=== PATIENT | female | born 1975 | race African-American/Black ===

== ENCOUNTER 2016-08-18 22:44 | Emergency (ER) | payer MEDICAID ==
[~2016-08-18] VITALS: Ht 162.6 cm; Wt 114.0 kg
[~2016-08-18 22:44] MED LIST: FLUC150T PO; HYDR25TA5 PO; IBUP-232 PO; LISI-587 PO
[2016-08-18 23:05] VITALS: BP 173/82; PULSE 85; RESP 15; TEMP 98.6; O2SAT 99
[2016-08-18] MEDS ORDERED: DIABETIC MED PO (23:16)
[2016-08-18] MEDS ORDERED: SODIUM CHLORIDE 0.9% FLUSH 5 ML FLUSH IVF PRN (23:30)
[2016-08-18] MEDS ORDERED: LORazepam 2 MG/ML VIAL IVS ONE (23:30)
[2016-08-18 23:45] LABS: AUTOMATED NEUTROPHIL # 2.7 TH/MM3 (1.8-7.7); BASOPHIL # 0.1 TH/MM3 (0-0.2); EOSINOPHIL # 0.3 TH/MM3 (0-0.4); EOSINOPHIL % 5.3 % (0.0-4.0); HEMATOCRIT 42.6 % (35.0-46.0); HEMO FLAGS DIFF FINAL; LYMPH % 40.7 % (9.0-44.0); LYMPHOCYTE # 2.3 TH/MM3 (1.0-4.8); MEAN CORPUSCULAR HEMOGLOBIN 26.4 PG (27.0-34.0); MONO % 6.8 % (0.0-8.0); NEUT % 46.2 % (16.0-70.0); PLATELET COUNT 237 TH/MM3 (150-450); RED BLOOD COUNT 5.33 MIL/MM3 (4.00-5.30); RED CELL DISTRIBUTION WIDTH 14.1 % (11.6-17.2); WHITE BLOOD COUNT 5.7 TH/MM3 (4.0-11.0)
--- NOTE | 2016-08-18 23:53 | PD ---
HPI Chief Complaint: Seizure Time Seen by Provider: 23:22 Travel History International Travel<30 days: No Contact w/Intl Traveler<30days: No Traveled to known affect area: No History of Present Illness HPI 40-year-old female with history of seizure disorder here after fall, head trauma and seizure. Patient has history of epilepsy but has been well over a year since her last seizure. She was taken off of her Keppra by her physician. She was playing on her son's however bore when she fell, hit her head and apparently lost consciousness and had a seizure. Patient complains of left- sided occipital parietal pain, notes swelling in this region. She feels sore" all over", which is how she typically feels after a seizure. She denies any nausea, vomiting. PFSH Past Medical History Hx Anticoagulant Therapy: Yes Anemia: Yes Heart Rhythm Problems: No Cancer: No Cardiac Catheterization: No Cardiovascular Problems: Yes (HTN) High Cholesterol: Yes Chest Pain: Yes Congestive Heart Failure: No Diabetes: Yes Diminished Hearing: No Gastrointestinal Disorders: Yes GERD: Yes Headaches: Yes Hypertension: Yes Immune Disorder: No Implanted Vascular Access Dvce: No Kidney Stones: Yes Musculoskeletal: Yes (HERNIATED C-4- BACK INJURY IN 01/08- CHRONIC BACK PAIN.) Psychiatric: No Reproductive: No Respiratory: No Immunizations Current: Yes Migraines: Yes Seizures: Yes Thyroid Disease: Yes Menopausal: No : 3 Para: 2 Miscarriage: 1 : 0 Tubal Ligation: Yes (2002) Past Surgical History Section: Yes (X 2) Coronary Artery Bypass Graft: No Gynecologic Surgery: Yes (ENDOMETRIAL ABLATION, breast reduction) Social History Alcohol Use: No Tobacco Use: No Substance Use: No (Pt denies) Allergies-Medications (Allergen,Severity, Reaction): Coded Allergies: Latex (Verified Allergy, Severe, HIVES, 08/18/16) Reported Meds & Prescriptions Reported Meds & Active Scripts Active Reported [Diabetic Med] Unknown Dose PO BID Hydrochlorothiazide 25 Mg Tab 25 Mg PO DAILY Review of Systems Except as stated in HPI: all other systems reviewed are Neg Physical Exam Narrative GENERAL: Well-appearing female, obese in no acute distress SKIN: Warm and dry. HEAD: Contusion to the left occipital parietal scalp without laceration. Normocephalic. EYES: Pupils equal and round. No scleral icterus. No injection or drainage. ENT: No nasal bleeding or discharge. Mucous membranes pink and moist. NECK: Supple without midline tenderness to palpation CARDIOVASCULAR: Regular rate and rhythm. RESPIRATORY: No accessory muscle use. GASTROINTESTINAL obese MUSCULOSKELETAL: No midline tenderness to palpation of thoracic or lumbar spine. Moves Ultram as normally. NEUROLOGICAL: Awake and alert. No obvious cranial nerve deficits. Motor grossly within normal limits. Normal speech. PSYCHIATRIC: Appropriate mood and affect; insight and judgment normal. Data Data Last Documented VS Vital Signs Date Time Temp Pulse Resp B/P Pulse Ox O2 Delivery O2 Flow Rate FiO2 08/18/16 23:11 85 15 99 Room Air 08/18/16 23:05 98.6 173/82 Orders Complete Blood Count With Diff (08/18/16 23:21) Basic Metabolic Panel (Bmp) (08/18/16 23:21) Electrocardiogram (08/18/16 ) Ct Brain W/O Iv Contrast(Rout) (08/18/16 ) Ecg Monitoring (08/18/16 23:21) Iv Access Insert/Monitor (08/18/16 23:21) Oximetry (08/18/16 23:21) Sodium Chloride 0.9% Flush (Ns Flush) (08/18/16 23:30) Lorazepam Inj (Ativan Inj) (08/18/16 23:30) Labs Laboratory Tests Test 08/18/16 23:30 White Blood Count 5.7 TH/MM3 Red Blood Count 5.33 MIL/MM3 Hemoglobin 14.1 GM/DL Hematocrit 42.6 % Mean Corpuscular Volume 80.0 FL Mean Corpuscular Hemoglobin 26.4 PG Mean Corpuscular Hemoglobin 33.0 % Concent Red Cell Distribution Width 14.1 % Platelet Count 237 TH/MM3 Mean Platelet Volume 8.8 FL Neutrophils (%) (Auto) 46.2 % Lymphocytes (%) (Auto) 40.7 % Monocytes (%) (Auto) 6.8 % Eosinophils (%) (Auto) 5.3 % Basophils (%) (Auto) 1.0 % Neutrophils # (Auto) 2.7 TH/MM3 Lymphocytes # (Auto) 2.3 TH/MM3 Monocytes # (Auto) 0.4 TH/MM3 Eosinophils # (Auto) 0.3 TH/MM3 Basophils # (Auto) 0.1 TH/MM3 CBC Comment DIFF FINAL Differential Comment Sodium Level 141 MEQ/L Potassium Level 3.6 MEQ/L Chloride Level 104 MEQ/L Carbon Dioxide Level 27.5 MEQ/L Anion Gap 10 MEQ/L Blood Urea Nitrogen 12 MG/DL Creatinine 1.30 MG/DL Estimat Glomerular Filtration 54 ML/MIN Rate Random Glucose 100 MG/DL Calcium Level 9.2 MG/DL MDM Medical Decision Making Medical Screen Exam Complete: Yes Emergency Medical Condition: Yes Medical Record Reviewed: Yes Differential Diagnosis 40-year-old female with history of seizure disorder here with fall, closed head injury and seizure. Differential includes closed head injury, skull fracture, ICH, seizure, medication nonadherence, electrolyte abnormality. Narrative Course Patient placed on monitor, IV established and blood obtained. Twelve-lead EKG showed sinus rhythm without notable ST abnormalities, normal intervals. No evidence of prolonged QT, WPW, Brugada 1 mg Ativan IV ordered but patient declines. CT of the brain showed hematoma but negative otherwise. CBC and BMP notable for creatinine 1.30. Patient felt improved and will be discharged home. Diagnosis Primary Impression: Closed head injury Qualified Code: S09.90XA - Closed head injury, initial encounter Additional Impression: Seizure Referrals: Neurologist as needed Additional Instructions: No driving for 6 months after seizure. Follow-up with neurologist as discussed. Med/Other Pt SpecificInfo: No Change to Meds Disposition: 01 DISCHARGE HOME Condition: Stable Ludy Henao MD Aug 18, 2016 23:53
--- NOTE | 2016-08-18 23:56 | RADRPT ---
EXAM DATE/TIME: 08/18/2016 23:27 [facility] COMPARISON: No previous studies available for comparison. INDICATIONS : Seizure; trauma to back of head. RADIATION DOSE: 56.35 CTDIvol (mGy) MEDICAL HISTORY : Seizures. SURGICAL HISTORY : None. ENCOUNTER: Initial ACUITY: 1 day PAIN SCALE: 8/10 LOCATION: cranial TECHNIQUE: Multiple contiguous axial images were obtained of the head. Using automated exposure control and adj ustment of the mA and/or kV according to patient size, radiation dose was kept as low as reasonably a chievable to obtain optimal diagnostic quality images. FINDINGS: CEREBRUM: The ventricles are normal for age. No evidence of midline shift, mass lesion, hemorrhage or acute in farction. No extra-axial fluid collections are seen. POSTERIOR FOSSA: The cerebellum and brainstem are intact. The 4th ventricle is midline. The cerebellopontine angle i s unremarkable. EXTRACRANIAL: The visualized portion of the orbits is intact. There is a small posterior scalp hematoma. SKULL: The calvaria is intact. No evidence of skull fracture. CONCLUSION: 1. No acute intracranial abnormalities. Small posterior scalp hematoma. Jimbo Jo MD on August 18, 2016 at 23:53 Board Certified Radiologist. This report was verified electronically.
[2016-08-19 00:02] LABS: BICARBONATE 27.5 MEQ/L (21.0-32.0); POTASSIUM 3.6 MEQ/L (3.5-5.1)
[2016-08-19] MEDS ORDERED: KETOROLAC TROMETHAMINE 30 MG/ML (IVP) VIAL IV PUSH ONE (00:15)
[2016-08-19 01:31] VITALS: BP 176/90; PULSE 89; RESP 16; O2SAT 99
--- NOTE | 2016-08-19 12:32 | EKG ---
Date Performed: 08/19/2016 Time Performed: 00:04:16 PTAGE: 40 years EKG: Sinus rhythm NORMAL ECG No significant change from prior electrocardiogram. PREVIOUS TRACING : 01/03/2016 09.30 DOCTOR: Saurav Cowart Interpretating Date/Time 08/19/2016 12:31:47
== END 2016-08-19 01:33 | disposition home or self-care (01) ==
LOC: NEPE 22:44
DX: S00.03XA Contusion of scalp, initial encounter (principal); R56.9 Unspecified convulsions; D64.9 Anemia, unspecified; I10 Essential (primary) hypertension; E78.00 Pure hypercholesterolemia, unspecified; E11.9 Type 2 diabetes mellitus without complications; K21.9 Gastro-esophageal reflux disease without esophagitis; G89.29 Other chronic pain; E07.9 Disorder of thyroid, unspecified; Z79.01 Long term (current) use of anticoagulants; V00.181A Fall from other rolling-type pedestrian conveyance, initial encounter; Y93.I9 Activity, other involving external motion; Y92.9 Unspecified place or not applicable; Y99.8 Other external cause status
CPT/HCPCS: 70450; 80048; 85025; 93005; 96374; 99284; J1885

== ENCOUNTER 2016-10-31 08:03 | Observation (INO) | payer MEDICAID ==
[2016-10-31] VITALS (12 sets, daily range): BP systolic 91–160; BP diastolic 66–92; PULSE 56–72; RESP 13–20; TEMP 98.1–98.6; O2SAT 97–100
[~2016-10-31] VITALS: Ht 162.6 cm; Wt 78.7 kg
[~2016-10-31 08:03] MED LIST changes: +DIABETIC MED PO; -FLUC150T PO; -IBUP-232 PO; -LISI-587 PO
[2016-10-31] MEDS ORDERED: levETIRAcetam INJ 1,000 MG in SODIUM CHLORIDE 0.9% INJ 100 ML IV ONE (08:15)
--- NOTE | 2016-10-31 08:16 | PD ---
HPI Chief Complaint: Seizure Time Seen by Provider: 08:06 Travel History International Travel<30 days: No Contact w/Intl Traveler<30days: No History of Present Illness HPI This is a 41-year-old female who has a history of seizures who presents to the emergency department having had 2 seizures this morning. Patient was at home with her son and in the bathroom when he found that she had fallen and was shaking on the floor. Initially EMS came to the house and the patient declined transport. She got in the car with her son and she had a second seizure that lasted for several minutes and then subsided. The son describes her shaking all over. She is confused following the episode. Neither of them remember what medication she is on for seizures, but they do acknowledge that she's had seizures in the past. She's not been sick recently. Patient provides limited history because she is postictal. PFSH Past Medical History Hx Anticoagulant Therapy: Yes Anemia: Yes Heart Rhythm Problems: No Cancer: No Cardiac Catheterization: No Cardiovascular Problems: Yes (HTN) High Cholesterol: Yes Chest Pain: Yes Congestive Heart Failure: No Diabetes: Yes Diminished Hearing: No Gastrointestinal Disorders: Yes GERD: Yes Headaches: Yes Hypertension: Yes Immune Disorder: No Implanted Vascular Access Dvce: No Kidney Stones: Yes Musculoskeletal: Yes (HERNIATED C-4- BACK INJURY IN 01/08- CHRONIC BACK PAIN.) Psychiatric: No Reproductive: No Respiratory: No Immunizations Current: Yes Migraines: Yes Seizures: Yes Thyroid Disease: Yes Menopausal: No : 3 Para: 2 Miscarriage: 1 : 0 Tubal Ligation: Yes (2002) Past Surgical History Section: Yes (X 2) Coronary Artery Bypass Graft: No Gynecologic Surgery: Yes (ENDOMETRIAL ABLATION, breast reduction) Social History Alcohol Use: No Tobacco Use: No Substance Use: No (Pt denies) Allergies-Medications (Allergen,Severity, Reaction): Coded Allergies: Latex (Verified Allergy, Severe, HIVES, 10/31/16) Reported Meds & Prescriptions Reported Meds & Active Scripts Active Reported Keppra XR 24 HR (Levetiracetam) Unknown Strength Nano Unknown Dose PO DAILY Metoprolol Tartrate 25 Mg Tab 25 Mg PO DAILY Zorvolex (Diclofenac) 35 Mg Cap 75 Mg PO BID Citalopram (Citalopram Hydrobromide) 20 Mg Tab 20 Mg PO DAILY Omeprazole 20 Mg Tab 20 Mg PO DAILY Metformin (Metformin HCl) Unknown Strength Tab Unknown Dose PO BIDPC With meals Review of Systems Except as stated in HPI: all other systems reviewed are Neg Physical Exam Narrative GENERAL:Well appearing, no acute distress SKIN: Focused skin assessment warm and dry. HEAD: Atraumatic. Normocephalic. EYES: Pupils equal and round. No injection or drainage. ENT: Moist mucous membranes NECK: Trachea midline. CARDIOVASCULAR: Regular rate and rhythm. No murmur appreciated. RESPIRATORY: Clear to auscultation. Breath sounds equal bilaterally. GASTROINTESTINAL: Abdomen soft, non-tender, nondistended. MUSCULOSKELETAL: No obvious deformities. NEUROLOGICAL: Sleepy, somewhat confused. No obvious cranial nerve deficits. Moving all extremities. Data Data Last Documented VS Vital Signs Date Time Temp Pulse Resp B/P Pulse Ox O2 Delivery O2 Flow Rate FiO2 10/31/16 10:15 61 16 127/79 100 Room Air 10/31/16 08:15 98.6 Orders ^ Insert Iv (10/31/16 08:12) Levetiracetam Inj (Keppra Inj) (10/31/16 08:15) Lorazepam (Ativan) (10/31/16 08:30) Lorazepam Inj (Ativan Inj) (10/31/16 08:34) Complete Blood Count With Diff (10/31/16 08:51) Ct Brain W/O Iv Contrast(Rout) (10/31/16 ) Blood Glucose (10/31/16 08:51) Ecg Monitoring (10/31/16 08:51) Iv Access Insert/Monitor (10/31/16 08:51) Oximetry (10/31/16 08:51) Comprehensive Metabolic Panel (10/31/16 08:51) Sodium Chlor 0.9% 1000 Ml Inj (Ns 1000 M (10/31/16 08:51) Sodium Chloride 0.9% Flush (Ns Flush) (10/31/16 09:00) Fosphenytoin Inj (Cerebyx Inj) (10/31/16 09:15) Magnesium (Mg) (10/31/16 08:51) Urinalysis - C+S If Indicated (10/31/16 08:51) Lorazepam Inj (Ativan Inj) (10/31/16 09:00) Ondansetron Inj (Zofran Inj) (10/31/16 09:30) Levetiracetam (10/31/16 09:43) Admit Order (Ed Use Only) (10/31/16 10:40) Labs Laboratory Tests Test 10/31/16 08:50 White Blood Count 4.6 TH/MM3 Red Blood Count 5.11 MIL/MM3 Hemoglobin 13.7 GM/DL Hematocrit 41.7 % Mean Corpuscular Volume 81.6 FL Mean Corpuscular Hemoglobin 26.7 PG Mean Corpuscular Hemoglobin 32.8 % Concent Red Cell Distribution Width 13.7 % Platelet Count 223 TH/MM3 Mean Platelet Volume 8.5 FL Neutrophils (%) (Auto) 31.2 % Lymphocytes (%) (Auto) 54.5 % Monocytes (%) (Auto) 6.8 % Eosinophils (%) (Auto) 5.7 % Basophils (%) (Auto) 1.8 % Neutrophils # (Auto) 1.4 TH/MM3 Lymphocytes # (Auto) 2.5 TH/MM3 Monocytes # (Auto) 0.3 TH/MM3 Eosinophils # (Auto) 0.3 TH/MM3 Basophils # (Auto) 0.1 TH/MM3 CBC Comment DIFF FINAL Differential Comment Sodium Level 143 MEQ/L Potassium Level 4.0 MEQ/L Chloride Level 108 MEQ/L Carbon Dioxide Level 28.2 MEQ/L Anion Gap 7 MEQ/L Blood Urea Nitrogen 14 MG/DL Creatinine 1.00 MG/DL Estimat Glomerular Filtration 73 ML/MIN Rate Random Glucose 92 MG/DL Calcium Level 9.4 MG/DL Magnesium Level 2.3 MG/DL Total Bilirubin 0.2 MG/DL Aspartate Amino Transf 16 U/L (AST/SGOT) Alanine Aminotransferase 25 U/L (ALT/SGPT) Alkaline Phosphatase 98 U/L Total Protein 7.5 GM/DL Albumin 3.8 GM/DL [facility] Medical Decision Making Medical Screen Exam Complete: Yes Emergency Medical Condition: Yes Differential Diagnosis Seizure, electrolyte abnormality, closed head injury, intracranial hemorrhage Narrative Course This is a 41-year-old female who presents to the emergency department having had 2 seizures this morning witnessed by her son. Here in the emergency department patient initially refused treatment but then had a third seizure here in the emergency department. She was given IM Ativan and loaded fosphenytoin. Labs were obtained and a CT scan was ordered which was reassuring. I was finally able to contact her neurologist who is Dr. Medrano at [facility]. He says the patient is on Topamax for headaches and is not currently on any seizure medication. She is ordered for an EEG but hasn't had it done yet. I think patient requires observation for EEG and neurology consultation. She likely should be initiated on a long-term seizure medication. Physician Communication Physician Communication Discussed with Dr. Juarez Diagnosis Primary Impression: Seizure Patient Instructions: General Instructions Additional Instructions: If you develop severe worsening headache, persistent vomiting, numbness, weakness, difficulty walking or difficulty talking return to the emergency department immediately. Follow up with your neurologist today at 1 PM at your scheduled appointment without fail. Med/Other Pt SpecificInfo: No Change to Meds Sonia Christensen MD October 31, 2016 08:16
[2016-10-31] MEDS ORDERED: LORazepam 1 MG TAB PO ONE (08:30)
[2016-10-31] MEDS ORDERED: LORazepam 2 MG/ML VIAL ONE (08:34)
[2016-10-31] MEDS ORDERED: SODIUM CHLOR 0.9% 1000 ML INJ 1,000 ML IV ONE (08:51)
[2016-10-31] MEDS ORDERED: LORazepam 2 MG/ML VIAL IM ONE (09:00)
[2016-10-31 09:10] LABS: AUTOMATED NEUTROPHIL # 1.4 TH/MM3 (1.8-7.7); BASOPHIL # 0.1 TH/MM3 (0-0.2); BASOPHIL % 1.8 % (0.0-2.0); EOSINOPHIL # 0.3 TH/MM3 (0-0.4); EOSINOPHIL % 5.7 % (0.0-4.0); HEMATOCRIT 41.7 % (35.0-46.0); HEMO FLAGS DIFF FINAL; LYMPH % 54.5 % (9.0-44.0); LYMPHOCYTE # 2.5 TH/MM3 (1.0-4.8); MEAN CELL VOLUME 81.6 FL (80.0-100.0); MEAN CORPUSCULAR HEMOGLOBIN 26.7 PG (27.0-34.0); MEAN CORPUSCULAR HGB CONC 32.8 % (32.0-36.0); MONO % 6.8 % (0.0-8.0); NEUT % 31.2 % (16.0-70.0); PLATELET COUNT 223 TH/MM3 (150-450); RED BLOOD COUNT 5.11 MIL/MM3 (4.00-5.30); RED CELL DISTRIBUTION WIDTH 13.7 % (11.6-17.2); WHITE BLOOD COUNT 4.6 TH/MM3 (4.0-11.0)
[2016-10-31] MEDS: SODIUM CHLORIDE 0.9% FLUSH 10 ML FLUSH IVF PRN ×2 (09:10→09:41)
[2016-10-31] MEDS ORDERED: FOSPHENYTOIN INJ 1,000 MGPE in SODIUM CHLORIDE 0.9% INJ 50 ML IV ONE (09:15)
[2016-10-31] MEDS ORDERED: ONDANSETRON HCL 4 MG/2 ML VIAL IV ONE (09:30)
[2016-10-31 09:55] LABS: BICARBONATE 28.2 MEQ/L (21.0-32.0); MAGNESIUM 2.3 MG/DL (1.5-2.5)
[2016-10-31 09:56] LABS: ANION GAP 7 MEQ/L (5-15); CHLORIDE 108 MEQ/L (98-107); SODIUM (NA) 143 MEQ/L (136-145)
--- NOTE | 2016-10-31 09:57 | RADHPO ---
EXAM DATE/TIME: 10/31/2016 09:06 [facility] COMPARISON: CT BRAIN W/O CONTRAST, August 18, 2016, 23:27. INDICATIONS : Increasing frequency of seizures. RADIATION DOSE: 68.75 CTDIvol (mGy) MEDICAL HISTORY : Seizures. Hypertension. SURGICAL HISTORY : Tubal ligation. ENCOUNTER: Initial ACUITY: 1 day PAIN SCALE: 0/10 LOCATION: cranial TECHNIQUE: Multiple contiguous axial images were obtained of the head. Using automated exposure control and adj ustment of the mA and/or kV according to patient size, radiation dose was kept as low as reasonably a chievable to obtain optimal diagnostic quality images. FINDINGS: CEREBRUM: The ventricles are normal for age. No evidence of midline shift, mass lesion, hemorrhage or acute in farction. No extra-axial fluid collections are seen. POSTERIOR FOSSA: The cerebellum and brainstem are intact. The 4th ventricle is midline. The cerebellopontine angle i s unremarkable. EXTRACRANIAL: The visualized portion of the orbits is intact. SKULL: The calvaria is intact. No evidence of skull fracture. CONCLUSION: No acute intracranial findings. Walt Zuniga MD on October 31, 2016 at 9:54 Board Certified Radiologist. This report was verified electronically.
[2016-10-31 09:58] LABS: ALT (GPT) 25 U/L (10-53); GLOMERULAR FILTRATION RATE 73 ML/MIN (>89)
[2016-10-31 09:59] LABS: TOTAL BILIRUBIN ADULT 0.2 MG/DL (0.2-1.0)
[2016-10-31 10:01] LABS: ALKALINE PHOSPHATASE 98 U/L (45-117)
[2016-10-31 10:07] LABS: AST (GOT) 16 U/L (15-37)
[2016-10-31 10:10] LABS: BLOOD UREA NITROGEN 14 MG/DL (7-18)
[2016-10-31] MEDS ORDERED: OMEP20TA PO (10:27)
[2016-10-31] MEDS ORDERED: DICL1CAP4 PO (10:27)
[2016-10-31] MEDS ORDERED: METF500T PO (10:27)
[2016-10-31] MEDS ORDERED: CITA20TA4 PO (10:27)
[2016-10-31] MEDS ORDERED: METO25TA3 PO (10:27)
[2016-10-31] MEDS ORDERED: [UNRECOGNIZED DRUG - CODE] PO (10:30)
[2016-10-31] MEDS: SODIUM CHLOR 0.9% 1000 ML INJ 1,000 ML IV SCH ×3 (10:42→21:47)
[2016-10-31] MEDS ORDERED: NALOXONE HCL 0.4 MG/ML AMP IV PRN (10:45)
[2016-10-31] MEDS ORDERED: SODIUM CHLORIDE 0.9% FLUSH 10 ML FLUSH IV FLUSH PRN (10:45)
[2016-10-31] MEDS ORDERED: ACETAMINOPHEN 325 MG TAB PO PRN (10:45)
[2016-10-31] MEDS ORDERED: DEXTROSE 50% IN WATER 50 ML VIAL(D50) IV PRN (10:45)
[2016-10-31] MEDS ORDERED: LORazepam 2 MG/ML VIAL IV PUSH PRN (10:45)
[2016-10-31] MEDS ORDERED: ONDANSETRON HCL 4 MG/2 ML VIAL IVP PRN (10:45)
[2016-10-31] MEDS ORDERED: MAGNESIUM HYDROXIDE SUSP 30 ML CUP PO PRN (10:45)
[2016-10-31] MEDS ORDERED: GLUCAGON 1 MG/ML VIAL OTHER PRN (10:45)
[2016-10-31 10:56] LABS: BLOOD, URINE TRACE (NEG); GLUCOSE,URINE NEG (NEG); KETONE, URINE NEG (NEG); NITRITE,URINE NEG (NEG); PH, URINE 6.5 (5.0-8.5)
[2016-10-31] MEDS: INSULIN ASPART SUPPLEMENTAL SCALE SQ SCH ×3 (11:00→21:00)
[2016-10-31 11:05] LABS: BACTERIA, URINE MOD /hpf; COMMENT (UR) CULTURE INDICATED; CULTURE IF INDICATED CULTURE INDICATED; METHOD OF COLLECTION CLEAN CATCH; RBC, URINE 0-3 /hpf (0-3); URINE COLOR YELLOW (YELLW/STRAW); WBC, URINE 0-2 /hpf (0-5)
[2016-10-31] MEDS: ACETAMINOPHEN 325 MG TAB PO PRN (14:08)
--- NOTE | 2016-10-31 16:41 | HHI.HP ---
HPI Service [facility] Primary Care Physician Kareem East MD Admission Diagnosis multiple seizures Diagnoses: Chief Complaint: Seizure Travel History International Travel<30 Days: No Contact w/Intl Traveler <30 Da: No Traveled to Known Affected Are: No History of Present Illness This is a 41-year-old female with a history of seizures, migraine, anemia, hypertension, hyperlipidemia, diabetes mellitus, GERD and chronic back pain. She presents to the emergency department having had 2 seizures this morning. Patient was at home with her son when he found that she had fallen and was shaking on the floor. Initially EMS came to the house and the patient declined transport. She got in the car with her son and she had a second seizure that lasted for several minutes and then subsided. The son describes her shaking all over. She is confused following the episode. Patient states she takes Keppra which she started 3 weeks ago. She also takes Topamax for migraine. Patient was in her usual state of health when she went to bed last night. No fever, chills, cough, neck pain, nausea, numbness and focal weakness. She has been under stress mainly from work. States she has this nasty taste like copper prior to having seizure episodes. In the emergency department, she had another episode and was loaded with IV Keppra and Cerebryx. She was also given Ativan and IV fluid. Review of Systems Except as stated in HPI: all other systems reviewed are Neg Past Family Social History Past Medical History As previously mentioned. She had negative stress test several months ago Past Surgical History section, breast reduction and endometrial ablation Reported Medications Keppra XR 24 HR (Levetiracetam) Unknown Strength Nano Unknown Dose PO DAILY Metoprolol Tartrate 25 Mg Tab 25 Mg PO DAILY Zorvolex (Diclofenac) 35 Mg Cap 75 Mg PO BID Citalopram (Citalopram Hydrobromide) 20 Mg Tab 20 Mg PO DAILY Omeprazole 20 Mg Tab 20 Mg PO DAILY Metformin (Metformin HCl) Unknown Strength Tab Unknown Dose PO BIDPC With meals Allergies: Coded Allergies: Latex (Verified Allergy, Severe, HIVES, 10/31/16) Family History No seizure problems Social History Does not smoke or drink. Denies illicit drug use Physical Exam Vital Signs Vital Signs Date Time Temp Pulse Resp B/P Pulse Ox O2 Delivery O2 Flow Rate FiO2 10/31/16 12:25 56 16 139/80 100 Room Air 10/31/16 11:10 98 Room Air 10/31/16 10:15 61 16 127/79 100 Room Air 10/31/16 09:55 61 16 100 Non-Rebreather 10/31/16 09:15 66 16 128/66 99 Room Air 10/31/16 08:46 62 16 142/82 100 Room Air 10/31/16 08:30 60 16 160/87 99 Room Air 10/31/16 08:17 67 16 99 Room Air 10/31/16 08:17 16 99 Room Air 10/31/16 08:15 98.6 64 18 91/78 99 Physical Exam GENERAL: This is an obese, well-developed patient, in no apparent distress. SKIN: No rashes, ecchymoses or lesions. Cool and dry. HEAD: Atraumatic. Normocephalic. No temporal or scalp tenderness. EYES: Pupils equal round and reactive. Extraocular motions intact. No scleral icterus. No injection or drainage. ENT: Nose without bleeding, purulent drainage or septal hematoma. Throat without erythema, tonsillar hypertrophy or exudate. Uvula midline. Airway patent. NECK: Trachea midline. No JVD or lymphadenopathy. Supple, nontender, no meningeal signs. CARDIOVASCULAR: Regular rate and rhythm without murmurs, gallops, or rubs. RESPIRATORY: Clear to auscultation. Breath sounds equal bilaterally. No wheezes , rales, or rhonchi. GASTROINTESTINAL: Abdomen soft, non-tender, nondistended. No guarding. MUSCULOSKELETAL: Extremities without clubbing, cyanosis, or edema. No joint tenderness, effusion, or edema noted. No calf tenderness. Negative Homans sign bilaterally. NEUROLOGICAL: Awake and alert. Cranial nerves II through XII intact. Motor and sensory grossly within normal limits. Five out of 5 muscle strength in all muscle groups. Normal speech. Laboratory Laboratory Tests Test 10/31/16 10/31/16 08:50 10:45 White Blood Count 4.6 Red Blood Count 5.11 Hemoglobin 13.7 Hematocrit 41.7 Mean Corpuscular Volume 81.6 Mean Corpuscular Hemoglobin 26.7 Mean Corpuscular Hemoglobin 32.8 Concent Red Cell Distribution Width 13.7 Platelet Count 223 Mean Platelet Volume 8.5 Neutrophils (%) (Auto) 31.2 Lymphocytes (%) (Auto) 54.5 Monocytes (%) (Auto) 6.8 Eosinophils (%) (Auto) 5.7 Basophils (%) (Auto) 1.8 Neutrophils # (Auto) 1.4 Lymphocytes # (Auto) 2.5 Monocytes # (Auto) 0.3 Eosinophils # (Auto) 0.3 Basophils # (Auto) 0.1 CBC Comment DIFF FINAL Differential Comment Sodium Level 143 Potassium Level 4.0 Chloride Level 108 Carbon Dioxide Level 28.2 Anion Gap 7 Blood Urea Nitrogen 14 Creatinine 1.00 Estimat Glomerular Filtration 73 Rate Random Glucose 92 Calcium Level 9.4 Magnesium Level 2.3 Total Bilirubin 0.2 Aspartate Amino Transf 16 (AST/SGOT) Alanine Aminotransferase 25 (ALT/SGPT) Alkaline Phosphatase 98 Total Protein 7.5 Albumin 3.8 Urine Collection Type CLEAN CATCH Urine Color YELLOW Urine Turbidity CLEAR Urine pH 6.5 Urine Specific [place] 1.011 Urine Protein NEG Urine Glucose (UA) NEG Urine Ketones NEG Urine Occult Blood TRACE Urine Nitrite NEG Urine Bilirubin NEG Urine Leukocyte Esterase NEG Urine RBC 0-3 Urine WBC 0-2 Urine Squamous Epithelial 6-8 Cells Urine Bacteria MOD Microscopic Urinalysis Comment CULTURE INDICATED Urine Collection Time 10:45 Date/Time Procedure Status Source Growth 10/31/16 10:45 Urine Culture Received Urine Clean Catch Pending Result Diagram: 10/31/16 0850 10/31/16 0850 Imaging Last Impressions Head CT 10/31/16 0000 Signed Impressions: Service Date/Time: Monday, October 31, 2016 09:06 - CONCLUSION: No acute intracranial findings. Walt Zuniga MD Assessment and Plan Problem List: (1) Seizure ICD Code: R56.9 Status: Acute Assessment and Plan This is a 41-year-old female who presented with recurrent seizures. She has history of seizure disorder on Keppra. She also takes Topamax for migraine. States she has this nasty taste like copper prior to having seizure episodes. In the emergency department, she had another episode and was loaded with IV Keppra and Cerebryx. She was also given Ativan and IV fluid. Recurrent seizures. Head CT without acute findings. Obtain EEG and seizure precautions. Start IV Keppra 100 mg twice a day. Follow-up Keppra level. Consult neurology Chronic medical conditions of migraine, anemia, hypertension, hyperlipidemia, diabetes mellitus, GERD and chronic back pain. Continue outpatient medications as appropriate. Monitor fingersticks and sliding scale coverage DVT prophylaxis with SCD and early ambulation. Discussed Condition With Patient and nursing staff Amado Juarez MD October 31, 2016 16:41
--- NOTE | 2016-10-31 20:52 | MB ---
cc: TERRY AMADOR M.D. DATE OF CONSULTATION 10/31/2016 DATE OF 1975, 41 years old REASON FOR CONSULTATION Breakthrough seizures. HISTORY OF THE PRESENT ILLNESS This is a 41-year-old woman with a history of epilepsy for the last couple of years, history of migraine, anemia, hypertension, hyperlipidemia, diabetes and reflux, as well as chronic back pain who presents after having two seizures in the morning. Was found at home on the floor shaking, postictal, declined transport but she did get in the car with her son had a second seizure that lasted for a few minutes, subsided. Apparently the patient does not take Keppra, she states that she takes Topamax 100 mg twice a day. She states that there was some confusion. She does not take Keppra, but Keppra was started. She has been somewhat itchy over the last few days and has been taking some Benadryl. Denies any sleep deprivation or significant stress. She states that prior to a seizure she starts having a funny taste, metallic, bad taste and then she knows that something is going happen and she does go into a generalized tonoclonic event with postictal confusion. Apparently in the ED she was loaded with Cerebyx 1 gram and given some Keppra 500 mg twice a day, as well as fluids and Ativan. PAST MEDICAL HISTORY As stated above. MEDICATIONS Home medicines are: 1. Metoprolol. 2. Diclofenac as needed. 3. Citalopram. 4. Omeprazole. 5. Metformin. 6. She also states that she takes topiramate 100 mg twice a day. ALLERGIES ARE LATEX. FAMILY HISTORY Noncontributory. SOCIAL HISTORY Does not smoke, drink or use any drugs. PHYSICAL EXAMINATION VITAL SIGNS: On exam her vitals temperature 98.6, pulse 56, respiratory rate 16, blood pressure 139/80. NECK: Supple. No bruits. HEART: Regular. LUNGS: Clear. NEUROLOGIC: She is awake and alert, oriented and fluent. Pupils reactive. Visual ridley are full. No nystagmus. Face symmetrical. Tongue midline. Motor west she does not exhibit any significant weakness, drift or leg lag. Cerebellar testing is normal. Toes are both downgoing. Gait is withheld. LABORATORY DATA Labs are reviewed. Urine cultures pending. IMAGING STUDIES CT of the head did not show any acute findings. IMPRESSION Breakthrough seizure in a 41-year-old woman, etiology really is unknown. There is some confusion of medications. She was loaded with Cerebyx that is okay, but I would not continue Dilantin. In any case continue her Keppra 500 mg q.12h Since she states she does not take this there is a Keppra level pending. Continue topiramate 100 mg every 12 hours. Maintain her on seizure precautions and Ativan. An EEG was done. We will go ahead and get that report. If she is stable certainly she can be discharged and have her follow up with [facility], her neurologist there. MD ANETTE Bocanegra/BEA /5:35 PM /8:39 PM
[2016-10-31] MEDS ORDERED: TOPIRAMATE 100 MG TAB PO SCH (21:00)
[2016-10-31] MEDS ORDERED: levETIRAcetam INJ 500 MG in SODIUM CHLORIDE 0.9% INJ 100 ML IV SCH (21:00)
[2016-10-31] MEDS: SODIUM CHLORIDE 0.9% FLUSH 10 ML FLUSH IV FLUSH SCH (21:00)
[2016-10-31] MEDS: DOCUSATE SODIUM 50 MG/SENNA 8.6 MG TAB PO SCH (21:00)
[2016-11-01] VITALS: BP 127/72; PULSE 58; RESP 18; TEMP 98.3; O2SAT 99
[2016-11-01 04:00] VITALS: BP 128/65; PULSE 60; RESP 12; TEMP 98.7; O2SAT 96
[2016-11-01 05:16] LABS: POTASSIUM 4.2 MEQ/L (3.5-5.1)
[2016-11-01] MEDS ORDERED: SUMAtriptan SUCCINATE 25 MG TAB PO ONE (05:25)
[2016-11-01 05:26] LABS: BICARBONATE 27.8 MEQ/L (21.0-32.0)
--- NOTE | 2016-11-01 06:58 | MG ---
cc: TERRY AMADOR M.D. Lab No: [id number] Date: 10/31/2016 Age: 41 Sex: F Race: __ DATE OF [address] Juarez ROOM 8405 TECHNIQUE Awake, drowsy and asleep with hyperventilation and photic stimulation. CT negative INDICATION This is a female 41 year-old with a history of break through seizures. MEDICATIONS She received one gram of Cerebyx, given Keppra. DESCRIPTION OF RECORD There is overall an alpha rhythm of 8 to 8-1/2 Hz, 20 microvolt, somewhat low amplitude EEG, but symmetrical. EKG looks sinus. Photic stimulation was performed with a posterior driving response. She has some head shaking, but it does not correlate with any epileptic activity just movement artifact. She is asked then to relax. EEG continues symmetrical, well-organized, diffuse. No epileptic discharges were seen. IMPRESSION Normal EEG. Clinical correlation. MD ANETTE Bocanegra/NITA /10:28 PM /6:49 AM
[2016-11-01] MEDS ORDERED: MORPHINE SULFATE 4 MG/ML INJ IV PUSH PRN ×2 (07:00→11:00)
[2016-11-01] MEDS: INSULIN ASPART SUPPLEMENTAL SCALE SQ SCH (07:00)
[2016-11-01 07:38] VITALS: RESP 8
[2016-11-01] MEDS: SODIUM CHLORIDE 0.9% FLUSH 10 ML FLUSH IV FLUSH SCH (09:00)
[2016-11-01] MEDS ORDERED: PANTOPRAZOLE SOD 20 MG DELAYED RELEASE TAB PO SCH (09:00)
[2016-11-01] MEDS: DOCUSATE SODIUM 50 MG/SENNA 8.6 MG TAB PO SCH (09:00)
[2016-11-01] MEDS ORDERED: CITALOPRAM HYDROBROMIDE 20 MG TAB PO SCH (09:00)
[2016-11-01] MEDS ORDERED: METOPROLOL TARTRATE 25 MG TAB PO SCH (09:00)
--- NOTE | 2016-11-01 09:55 | HHI.PR ---
Subjective Remarks Follow-up seizure. No recurrence. Complains of migraine headache improving scale of 4 out of 10 after IV morphine. Seen with mother. Discussed with RN. Seizure precautions. Patient aware not to drive for 6 months, swim alone, carry young kids and climb heights Objective Vitals Vital Signs Date Time Temp Pulse Resp B/P Pulse Ox O2 Delivery O2 Flow Rate FiO2 11/01/16 04:00 98.7 60 12 128/65 96 11/01/16 00:00 98.3 58 18 127/72 99 10/31/16 20:02 98 21 10/31/16 19:27 98.5 70 19 112/68 97 10/31/16 18:47 67 13 134/92 99 10/31/16 18:07 21 10/31/16 16:00 98.1 72 20 133/75 10/31/16 12:25 56 16 139/80 100 Room Air 10/31/16 11:10 98 Room Air 10/31/16 10:15 61 16 127/79 100 Room Air 10/31/16 09:55 61 16 100 Non-Rebreather I/O 10/31/16 10/31/16 10/31/16 11/01/16 11/01/16 11/01/16 07:00 15:00 23:00 07:00 15:00 23:00 Intake Total 1100 ml 1125 ml 1050 ml Balance 1100 ml 1125 ml 1050 ml Intake Oral 300 ml 250 ml IV Total 1100 ml 825 ml 800 ml # Voids 2 2 Result Diagram: 10/31/16 0850 11/01/16 0455 Imaging Last Impressions Head CT 10/31/16 0000 Signed Impressions: Service Date/Time: Monday, October 31, 2016 09:06 - CONCLUSION: No acute intracranial findings. Walt Zuniga MD Objective Remarks GENERAL: This is an obese, well-developed patient, in no apparent distress. SKIN: No rashes, ecchymoses or lesions. Cool and dry. HEAD: Atraumatic. Normocephalic. No temporal or scalp tenderness. EYES: Pupils equal round and reactive. Extraocular motions intact. No scleral icterus. No injection or drainage. ENT: Nose without bleeding, purulent drainage or septal hematoma. Throat without erythema, tonsillar hypertrophy or exudate. Uvula midline. Airway patent. NECK: Trachea midline. No JVD or lymphadenopathy. Supple, nontender, no meningeal signs. CARDIOVASCULAR: Regular rate and rhythm without murmurs, gallops, or rubs. RESPIRATORY: Clear to auscultation. Breath sounds equal bilaterally. No wheezes , rales, or rhonchi. GASTROINTESTINAL: Abdomen soft, non-tender, nondistended. No guarding. MUSCULOSKELETAL: Extremities without clubbing, cyanosis, or edema. No joint tenderness, effusion, or edema noted. No calf tenderness. Negative Homans sign bilaterally. NEUROLOGICAL: Awake and alert. Cranial nerves II through XII intact. Motor and sensory grossly within normal limits. Five out of 5 muscle strength in all muscle groups. Normal speech. Procedures None A/P Problem List: (1) Seizure ICD Code: R56.9 Status: Acute Assessment and Plan This is a 41-year-old female who presented with recurrent seizures. She has history of seizure disorder and migraines on Topamax. She now confirms she was taken off Keppra. States she has this nasty taste like copper prior to having seizure episodes. In the emergency department, she had another episode and was loaded with IV Keppra and Cerebryx. She was also given Ativan and IV fluid. Recurrent seizures. Head CT without acute findings. Negative EEG. Stable overnight with no recurrence. Switch to by mouth Keppra. Seizure precautions. Patient aware not to drive for 6 months, swim alone, carry young kids and climb heights. Neurology has cleared patient for discharge Abnormal urinalysis. No UTI symptoms. Follow up urine culture. Migraine headaches. Start Fioricet. Chronic medical conditions of anemia, hypertension, hyperlipidemia, diabetes mellitus, GERD and chronic back pain. Continue outpatient medications as appropriate. Monitor fingersticks and sliding scale coverage. Recommend to have follow-up A1c outpatient. Diabetic education DVT prophylaxis with SCD and early ambulation. Discharge Planning Discharge patient to home Condition on discharge: Improved Regular Diet as tolerated Ad Purvi activity no driving. See above Rx written: KEPPRA and Fioricet Follow-up with primary care physician in one week I spent 35 minutes [id number] with the patient or on the kruse discussing the patient's disposition, prognosis, and plan of care with patient's caregivers. Over half the time spent was devoted to counseling the patient regarding placement in coordinating care with caregivers and case management. Amado Juarez MD Nov 01, 2016 09:55
[2016-11-01] MEDS ORDERED: LEVE250 PO (09:59)
[2016-11-01] MEDS ORDERED: BUTATAB6 PO (09:59)
--- NOTE | 2016-11-01 09:59 | HHI.DCPOC ---
Discharge Care Plan Diagnosis: (1) Seizure Your Health Problems Are: Difficulty with ADL Exercise Tolerance Goals to Promote Your Health * To prevent worsening of your condition and complications * To maintain your health at the optimal level Directions to Meet Your Goals Take your medications as prescribed Follow your dietary instruction Follow activity as directed Keep your appointments as scheduled Take your immunizations and boosters as scheduled If your symptoms worsen call your PCP, if no PCP go to Urgent Care Center or Emergency Room Smoking is Dangerous to Your Health. Avoid second hand smoke Call the 24-hour hour crisis hotline for domestic abuse at Amado Juarez MD Nov 01, 2016 09:59
[2016-11-01] MEDS ORDERED: TOPA25TA8 PO (10:40)
[2016-11-01] MEDS: ACETAMINOPHEN 325 MG TAB PO PRN (10:53)
[2016-11-01] MEDS ORDERED: levETIRAcetam 500 MG TAB PO SCH (11:00)
[2016-11-01] MEDS ORDERED: ACETAMIN 325 MG/BUTALBITAL 50 MG/CAFFEINE 40 MG TAB PO PRN (12:00)
[2016-11-01] MEDS ORDERED: TOPIRAMATE 100 MG TAB PO SCH (21:00)
== END 2016-11-01 11:41 | disposition home or self-care (01) ==
LOC: PHED 08:03 → PHEDA 10:41 → PHICU 15:45
PROVIDERS: ADMIT Internal Medicine; ATTEND Internal Medicine
DX: G40.909 Epilepsy, unspecified, not intractable, without status epilepticus (principal); G43.909 Migraine, unspecified, not intractable, without status migrainosus; E11.9 Type 2 diabetes mellitus without complications; D64.9 Anemia, unspecified; I10 Essential (primary) hypertension; E78.5 Hyperlipidemia, unspecified; R82.90 Unspecified abnormal findings in urine; K21.9 Gastro-esophageal reflux disease without esophagitis; G89.29 Other chronic pain; M54.9 Dorsalgia, unspecified; Z79.84 Long term (current) use of oral hypoglycemic drugs; Z91.040 Latex allergy status
CPT/HCPCS: 70450; 80048; 80053; 80177; 81001; 82550; 82948; 83735; 84703; 85025; 87086; 95819; 96361; 96365; 96372; 96375; 99285; G0378; J1953; J2060; J2270; J2405; J7030; Q2009

== ENCOUNTER 2017-01-21 11:10 | Emergency (ER) | payer MEDICAID ==
[2017-01-21 11:10] VITALS: BP 138/80; PULSE 64; RESP 18; TEMP 97.8; O2SAT 100
[~2017-01-21 11:10] MED LIST changes: +BUTATAB6 PO; +CITA20TA4 PO; -DIABETIC MED PO; +DICL1CAP4 PO; -HYDR25TA5 PO; +LEVE250 PO; +METF500T PO; +METO25TA3 PO; +OMEP20TA PO; +TOPA25TA8 PO; +[UNRECOGNIZED DRUG - CODE] PO
[2017-02-13] MEDS ORDERED: NITR1CAP36 PO (09:05)
== END 2017-01-21 11:17 | disposition left against medical advice (07) ==
LOC: PHED 11:10
DX: R07.9 Chest pain, unspecified (principal)
CPT/HCPCS: 99281

== ENCOUNTER 2017-01-21 11:53 | Observation (INO) | payer MEDICAID ==
[~2017-01-21] VITALS: Ht 162.6 cm; Wt 116.2 kg
[2017-01-21] VITALS (8 sets, daily range): BP systolic 125–176; BP diastolic 72–92; PULSE 68–82; RESP 16–18; TEMP 97.8–99; O2SAT 97–100
[2017-01-21] MEDS ORDERED: IOHEXOL 350 MG/ML 10 ML VIAL (for RAD DIAG) IVCONTRAST ONE (11:54)
[2017-01-21] MEDS ORDERED: NITROGLYCERIN 0.4 MG SL 25 TABS/BTL SL ONE (12:15)
[2017-01-21] MEDS ORDERED: SODIUM CHLORIDE 0.9% FLUSH 10 ML FLUSH IVF PRN ×2 (12:15)
--- NOTE | 2017-01-21 12:17 | PD ---
HPI Chief Complaint: Seizure Time Seen by Provider: 11:57 Travel History International Travel<30 days: No Contact w/Intl Traveler<30days: No Traveled to known affect area: No History of Present Illness HPI 41-year-old female with history of seizure disorder, hyperlipidemia, diabetes, here for evaluation of headache, seizure, and chest pain. The patient initially presented to the emergency department earlier today for evaluation of chest pain. She had an EKG performed in triage, however left before being evaluated by provider. While in the parking lot, the patient had a generalized seizure that was witnessed by the patient's son. Patient reports compliance with her antiepileptic medications. She reports having substernal chest pain that started today and radiates to her back, left arm, left arm numbness. Pain described as a pressure, moderate, no modifying factors. She denies history of cardiac disease. No history of DVT or PE. She states that she was not feeling well all day yesterday complaining of a headache and generalized malaise. Headache continued to today. No fevers. BGL performed upon arrival and is 95. PFSH Past Medical History Hx Anticoagulant Therapy: Yes Anemia: Yes Anxiety: Yes Heart Rhythm Problems: No Cancer: No Cardiac Catheterization: No Cardiovascular Problems: Yes (htn on meds) High Cholesterol: Yes Chest Pain: Yes Congestive Heart Failure: No Diabetes: Yes (DM 2) Patient Takes Glucophage: No Diminished Hearing: No Endocrine: Yes Gastrointestinal Disorders: Yes GERD: Yes Genitourinary: Yes Headaches: Yes Heparin Induced Thrombocytopen: No Hypertension: Yes Immune Disorder: No Implanted Vascular Access Dvce: No Kidney Stones: Yes Musculoskeletal: Yes (HERNIATED C-4- BACK INJURY IN 01/08- CHRONIC BACK PAIN.) Neurologic: Yes Psychiatric: No Reproductive: No Respiratory: No Immunizations Current: Yes Migraines: Yes Seizures: Yes Thyroid Disease: Yes ?: Not Menopausal: No : 3 Para: 2 Miscarriage: 1 : 0 Tubal Ligation: Yes (2002) Past Surgical History Section: Yes (X 2) Coronary Artery Bypass Graft: No Gynecologic Surgery: Yes (ENDOMETRIAL ABLATION, breast reduction) Other Surgery: Yes (breast reduction) Family History Family Myocardial Infarction: No Social History Alcohol Use: Yes (occas.) Tobacco Use: No Substance Use: No Allergies-Medications (Allergen,Severity, Reaction): Coded Allergies: latex (Unverified Allergy, Severe, HIVES, 01/21/17) Reported Meds & Prescriptions Reported Meds & Active Scripts Active Keppra (Levetiracetam) 250 Mg Tab 500 Mg PO BID Tmmbfntneg-Jteytiashjmda-Afocckqy 50-325-40 Mg Tab 1 Tab PO Q6H PRN Reported Topamax (Topiramate) 25 Mg Tab 200 Mg PO BID Metoprolol Tartrate 25 Mg Tab 25 Mg PO DAILY Citalopram (Citalopram Hydrobromide) 20 Mg Tab 20 Mg PO DAILY Omeprazole 20 Mg Tab 20 Mg PO DAILY Metformin (Metformin HCl) Unknown Strength Tab Unknown Dose PO BIDPC With meals Review of Systems Except as stated in HPI: all other systems reviewed are Neg Physical Exam Narrative GENERAL: Well-developed, well-nourished, awake, alert, GCS 15, tearful. SKIN: Focused skin assessment warm/dry. HEAD: Atraumatic. Normocephalic. EYES: Pupils equal and round. No scleral icterus. No injection or drainage. ENT: Mucous membranes pink and moist. NECK: Trachea midline. No JVD. CARDIOVASCULAR: Regular rate and rhythm. No murmur appreciated. Distal pulses brisk and equal bilaterally. RESPIRATORY: No accessory muscle use. Clear to auscultation. Breath sounds equal bilaterally. GASTROINTESTINAL: Abdomen soft, non-tender, nondistended. MUSCULOSKELETAL: No obvious deformities. No clubbing. No cyanosis. No edema. NEUROLOGICAL: Awake and alert. No obvious cranial nerve deficits. Motor grossly within normal limits. Normal speech. No focal deficits. PSYCHIATRIC: Appropriate mood and affect; insight and judgment normal. Data Data Last Documented VS Vital Signs Date Time Temp Pulse Resp B/P (MAP) Pulse Ox O2 Delivery O2 Flow Rate FiO2 01/21/17 13:52 100 01/21/17 12:08 73 16 Room Air 01/21/17 11:57 98.9 176/76 (109) Orders Orders Complete Blood Count With Diff (01/21/17 12:11) Electrocardiogram (01/21/17 ) Ct Brain W/O Iv Contrast(Rout) (01/21/17 ) Blood Glucose (01/21/17 12:11) Ecg Monitoring (01/21/17 12:11) Iv Access Insert/Monitor (01/21/17 12:11) Oximetry (01/21/17 12:11) Comprehensive Metabolic Panel (01/21/17 12:11) Sodium Chloride 0.9% Flush (Ns Flush) (01/21/17 12:15) Ckmb (Isoenzyme) Profile (01/21/17 12:11) Magnesium (Mg) (01/21/17 12:11) Prothrombin Time / Inr (Pt) (01/21/17 12:11) Act Partial Throm Time (Ptt) (01/21/17 12:11) Troponin I (01/21/17 12:11) Chest, Single Ap (01/21/17 12:11) Sodium Chloride 0.9% Flush (Ns Flush) (01/21/17 12:15) Nitroglycerin Sl (Nitrostat Sl) (01/21/17 12:15) Cta Thor Abd Aorta W Iv C W3d (01/21/17 ) Beta Hcg (Quant/Titer) (01/21/17 12:11) CKMB (01/21/17 13:12) CKMB% (01/21/17 13:12) Iohexol 350 Inj (Omnipaque 350 Inj) (01/21/17 11:54) Aspirin Chew (Aspirin Chew) (01/21/17 15:45) Labs Laboratory Tests Test 01/21/17 13:12 White Blood Count 5.0 TH/MM3 Red Blood Count 5.18 MIL/MM3 Hemoglobin 13.5 GM/DL Hematocrit 41.5 % Mean Corpuscular Volume 80.2 FL Mean Corpuscular Hemoglobin 26.1 PG Mean Corpuscular Hemoglobin Concent 32.5 % Red Cell Distribution Width 14.0 % Platelet Count 240 TH/MM3 Mean Platelet Volume 7.7 FL Neutrophils (%) (Auto) 44.6 % Lymphocytes (%) (Auto) 42.2 % Monocytes (%) (Auto) 7.9 % Eosinophils (%) (Auto) 4.7 % Basophils (%) (Auto) 0.6 % Neutrophils # (Auto) 2.3 TH/MM3 Lymphocytes # (Auto) 2.1 TH/MM3 Monocytes # (Auto) 0.4 TH/MM3 Eosinophils # (Auto) 0.2 TH/MM3 Basophils # (Auto) 0.0 TH/MM3 CBC Comment DIFF FINAL Differential Comment Prothrombin Time 10.7 SEC Prothromb Time International Ratio 1.0 RATIO Activated Partial Thromboplast Time 30.8 SEC Blood Urea Nitrogen 13 MG/DL Creatinine 1.10 MG/DL Random Glucose 89 MG/DL Total Protein 8.0 GM/DL Albumin 3.8 GM/DL Calcium Level 9.1 MG/DL Magnesium Level 2.1 MG/DL Alkaline Phosphatase 108 U/L Aspartate Amino Transf (AST/SGOT) 16 U/L Alanine Aminotransferase (ALT/SGPT) 26 U/L Total Bilirubin 0.3 MG/DL Sodium Level 141 MEQ/L Potassium Level 3.7 MEQ/L Chloride Level 108 MEQ/L Carbon Dioxide Level 26.7 MEQ/L Anion Gap 6 MEQ/L Estimat Glomerular Filtration Rate 66 ML/MIN Total Creatine Kinase 101 U/L Creatine Kinase MB LESS THAN 0.5 NG/ML Troponin I LESS THAN 0.02 NG/ML Human Chorionic Gonadotropin, Quant LESS THAN 1 MIU/ML MDM Medical Decision Making Medical Screen Exam Complete: Yes Emergency Medical Condition: Yes Medical Record Reviewed: Yes Interpretation(s) EKG: Sinus, rate 68, normal axis, normal intervals, no acute ischemic abnormality. Differential Diagnosis Breakthrough seizure, ACS, pneumothorax, pericarditis, PE, pneumonia, dissection , metabolic abnormality Narrative Course Vital signs show heart rate 73, blood pressure 176/76, pulse ox 100% on room air , oral temp of 98.9F. CBC is unremarkable. CMP is unremarkable. Cardiac enzymes are negative. Beta hCG is negative. Chest x-ray: No acute disease. CT head: No acute intracranial disease. Chest x-ray: No acute disease. CT thoracic and abdominal aorta: CONCLUSION: 1. Thoracoabdominal aorta is normal throughout. Incidental note is made of a bovine arch, an anatomic variant. 2. Probable pedunculated fibroid off the left lower uterine segment. Patient made aware of all findings. She is resting comfortably. Reports that her chest pain has resolved after sublingual nitroglycerin. Patient has multiple risk factors for cardiac disease. She was given a dose of aspirin 324 mg will be admitted to the chest pain center for further cardiac evaluation. Case discussed with hospitalist Dr. Canela who will admit the patient to her service. Procedures Procedure Narrative Ultrasound-guided peripheral IV: Because of difficult IV access, was asked by my nurse to place an IV under ultrasound guidance for lab work as well as imaging study. Using the linear ultrasound probe, a 20-gauge IV catheter was placed in the right antecubital fossa. Site prepped with ChloraPrep prior to insertion. Tolerated well. No complications. Diagnosis Primary Impression: Chest pain Qualified Codes: R07.9 - Chest pain, unspecified Additional Impression: Seizure Admitting Information Admitting Physician Requests: Observation Joel Do MD Jan 21, 2017 12:16
--- NOTE | 2017-01-21 12:46 | RADRPT ---
EXAM DATE/TIME: 01/21/2017 12:36 [facility] COMPARISON: CHEST SINGLE AP, January 03, 2016, 10:04. INDICATIONS : Chest pain. MEDICAL HISTORY : Hypertension. seizures SURGICAL HISTORY : Tubal ligation. ENCOUNTER: Initial ACUITY: 1 day PAIN SCORE: 3/10 LOCATION: Bilateral chest FINDINGS: A single view of the chest demonstrates the lungs to be symmetrically aerated without evidence of mas s, infiltrate or effusion. The cardiomediastinal contours are unremarkable. Osseous structures are intact. CONCLUSION: No acute disease. Osman Ochoa MD on January 21, 2017 at 12:44 Board Certified Radiologist. This report was verified electronically.
[2017-01-21 13:19] LABS: AUTOMATED NEUTROPHIL # 2.3 TH/MM3 (1.8-7.7); BASOPHIL % 0.6 % (0.0-2.0); EOSINOPHIL # 0.2 TH/MM3 (0-0.4); EOSINOPHIL % 4.7 % (0.0-4.0); HEMATOCRIT 41.5 % (35.0-46.0); HEMO FLAGS DIFF FINAL; LYMPH % 42.2 % (9.0-44.0); LYMPHOCYTE # 2.1 TH/MM3 (1.0-4.8); MEAN CELL VOLUME 80.2 FL (80.0-100.0); MEAN CORPUSCULAR HEMOGLOBIN 26.1 PG (27.0-34.0); MEAN CORPUSCULAR HGB CONC 32.5 % (32.0-36.0); MONO % 7.9 % (0.0-8.0); NEUT % 44.6 % (16.0-70.0); PLATELET COUNT 240 TH/MM3 (150-450); RED BLOOD COUNT 5.18 MIL/MM3 (4.00-5.30)
[2017-01-21 13:32] LABS: CHLORIDE 108 MEQ/L (98-107); POTASSIUM 3.7 MEQ/L (3.5-5.1); SODIUM (NA) 141 MEQ/L (136-145)
[2017-01-21 13:36] LABS: APTT (PATIENT) 30.8 SEC (24.3-30.1); PROTHROMBIN TIME - PATIENT 10.7 SEC (9.8-11.6)
[2017-01-21 13:37] LABS: ANION GAP 6 MEQ/L (5-15); BICARBONATE 26.7 MEQ/L (21.0-32.0); BLOOD UREA NITROGEN 13 MG/DL (7-18); MAGNESIUM 2.1 MG/DL (1.5-2.5)
[2017-01-21 13:40] LABS: ALT (GPT) 26 U/L (10-53); AST (GOT) 16 U/L (15-37)
[2017-01-21 13:41] LABS: GLOMERULAR FILTRATION RATE 66 ML/MIN (>89)
[2017-01-21 13:42] LABS: TOTAL BILIRUBIN ADULT 0.3 MG/DL (0.2-1.0)
[2017-01-21 13:43] LABS: ALKALINE PHOSPHATASE 108 U/L (45-117); CREATINE KINASE 101 U/L (26-192)
[2017-01-21 13:46] LABS: BETA HCG QUANT LESS THAN 1 MIU/ML (0-5)
[2017-01-21 13:55] LABS: CKMB LESS THAN 0.5 NG/ML (0.5-3.6)
--- NOTE | 2017-01-21 14:40 | RADRPT ---
EXAM DATE/TIME: 01/21/2017 14:22 [facility] COMPARISON: CT BRAIN W/O CONTRAST, October 31, 2016, 9:06. INDICATIONS : Seizure. RADIATION DOSE: 61.67 CTDIvol (mGy) MEDICAL HISTORY : Seizures. Hypertension. Diabetes mellitus type 2.Anticoagulant therapy. SURGICAL HISTORY : Tubal ligation. section. ENCOUNTER: Initial ACUITY: 1 day PAIN SCALE: 0/10 LOCATION: cranial TECHNIQUE: Multiple contiguous axial images were obtained of the head. Using automated exposure control and adj ustment of the mA and/or kV according to patient size, radiation dose was kept as low as reasonably a chievable to obtain optimal diagnostic quality images. DICOM format image data is available electro nically for review and comparison. FINDINGS: CEREBRUM: The ventricles are normal for age. No evidence of midline shift, mass lesion, hemorrhage or acute in farction. No extra-axial fluid collections are seen. POSTERIOR FOSSA: The cerebellum and brainstem are intact. The 4th ventricle is midline. The cerebellopontine angle i s unremarkable. EXTRACRANIAL: The visualized portion of the orbits is intact. SKULL: The calvaria is intact. No evidence of skull fracture. CONCLUSION: No acute intracranial disease. Osman Ochoa MD on January 21, 2017 at 14:37 Board Certified Radiologist. This report was verified electronically.
--- NOTE | 2017-01-21 15:22 | RADRPT ---
EXAM DATE/TIME: 01/21/2017 14:32 [facility] COMPARISON: CT ABDOMEN & PELVIS W CONTRAST, October 22, 2013, 20:16. INDICATIONS : Chest pain. Evaluate for aortic dissection. IV CONTRAST: 95 cc Omnipaque 350 (iohexol) IV RADIATION DOSE: 24.45 CTDIvol (mGy) MEDICAL HISTORY : Seizures. Hypertension. Diabetes mellitus type 2.Anticoagulant therapy. SURGICAL HISTORY : Tubal ligation. section. ENCOUNTER: Initial ACUITY: 1 day PAIN SCALE: 5/10 LOCATION: chest TECHNIQUE: Volumetric scanning was performed using a multi-row detector CT scanner. The data was post processed with a variety of visualization algorithms including full volume maximum intensity projection, multi -planar sliding thin slab reformation, curved planar reformation, and surface rendering techniques. Using automated exposure control and adjustment of the mA and/or kV according to patient size, radiat ion dose was kept as low as reasonably achievable to obtain optimal diagnostic quality images. DICOM format image data is available electronically for review and comparison. FINDINGS: LUNGS: There is no consolidation or pneumothorax. No concerning pulmonary nodule is visualized. No pleural fluid is present. MEDIASTINUM: No abnormally enlarged lymph nodes by CT criteria. No axillary or hilar abnormalities are identified. ABDOMEN: The liver and spleen are free of focal defects. The gallbladder and pancreas demonstrate no abnormali ty. The adrenal glands are normal. The kidneys demonstrate no evidence of solid renal mass or hydrone phrosis. No free fluid or abdominal masses are identified. No para-aortic adenopathy is seen. PELVIS: No evidence of free fluid or pelvic mass. No abnormally enlarged inguinal or retroperitoneal lymph no loc are present. The bladder is unremarkable. A adjacent to the left side of the lower uterine segmen t a 2.6 x 2.5 cm structure which may represent a pedunculated fibroid versus complex left ovarian cys t. I do believe this was present back in 2013 and therefore, is likely associated with the uterus its elf. THORACIC AORTA: The thoracic aortic root is normal with a bovine arch configuration. There is no evidence of aneurys m or dissection. ABDOMINAL AORTA: The aorta is normal in caliber without aneurysm or dissection. The renal arteries are patent bilater ally. The proximal celiac and superior mesenteric arteries are patent and normal in diameter. PELVIC VESSELS: The internal iliac and external iliac vessels are patent without aneurysm or stenosis. CONCLUSION: 1. Thoracoabdominal aorta is normal throughout. Incidental note is made of a bovine arch, an anatomic variant. 2. Probable pedunculated fibroid off the left lower uterine segment. Alexander Ngo MD on January 21, 2017 at 15:09 Board Certified Radiologist. This report was verified electronically.
[2017-01-21] MEDS ORDERED: ASPIRIN 81 MG CHEW TAB PO ONE (15:45)
[2017-01-21] MEDS ORDERED: NALOXONE HCL 0.4 MG/ML AMP IV PRN (16:00)
[2017-01-21] MEDS ORDERED: ACETAMINOPHEN 325 MG TAB PO PRN (16:00)
[2017-01-21] MEDS ORDERED: ONDANSETRON HCL 4 MG/2 ML VIAL IVP PRN (16:00)
[2017-01-21] MEDS ORDERED: SODIUM CHLORIDE 0.9% FLUSH 10 ML FLUSH IV FLUSH PRN (16:00)
[2017-01-21] MEDS ORDERED: NITROGLYCERIN 0.4 MG SL 25 TABS/BTL SL PRN (17:45)
[2017-01-21] MEDS ORDERED: ACETAMIN 325 MG/BUTALBITAL 50 MG/CAFFEINE 40 MG TAB PO PRN (17:45)
[2017-01-21] MEDS ORDERED: GLUCAGON 1 MG/ML VIAL OTHER PRN (17:45)
[2017-01-21] MEDS ORDERED: DEXTROSE 50% IN WATER 50 ML VIAL(D50) IV PRN (17:45)
[2017-01-21 21:00] LABS: CREATINE KINASE 94 U/L (26-192)
[2017-01-21] MEDS: SODIUM CHLORIDE 0.9% FLUSH 10 ML FLUSH IV FLUSH SCH (21:00)
[2017-01-21] MEDS: levETIRAcetam 500 MG TAB PO SCH (21:00)
[2017-01-21] MEDS: INSULIN ASPART SUPPLEMENTAL SCALE SQ SCH (21:00)
[2017-01-21] MEDS: TOPIRAMATE 200 MG TAB PO SCH (21:00)
[2017-01-22] VITALS: BP 118/74; PULSE 68; RESP 18; TEMP 97; O2SAT 100
[2017-01-22 04:00] VITALS: BP 118/80; PULSE 65; RESP 18; TEMP 95.6; O2SAT 100
[2017-01-22] MEDS: INSULIN ASPART SUPPLEMENTAL SCALE SQ SCH ×2 (06:13→11:00)
[2017-01-22 06:29] LABS: AUTOMATED NEUTROPHIL # 1.8 TH/MM3 (1.8-7.7); BASOPHIL % 0.5 % (0.0-2.0); EOSINOPHIL # 0.3 TH/MM3 (0-0.4); EOSINOPHIL % 5.4 % (0.0-4.0); HEMATOCRIT 40.7 % (35.0-46.0); HEMO FLAGS DIFF FINAL; LYMPH % 46.5 % (9.0-44.0); LYMPHOCYTE # 2.2 TH/MM3 (1.0-4.8); MEAN CELL VOLUME 79.9 FL (80.0-100.0); MEAN CORPUSCULAR HEMOGLOBIN 25.8 PG (27.0-34.0); MEAN CORPUSCULAR HGB CONC 32.3 % (32.0-36.0); NEUT % 37.6 % (16.0-70.0); PLATELET COUNT 224 TH/MM3 (150-450); RED BLOOD COUNT 5.09 MIL/MM3 (4.00-5.30); RED CELL DISTRIBUTION WIDTH 13.9 % (11.6-17.2); WHITE BLOOD COUNT 4.8 TH/MM3 (4.0-11.0)
[2017-01-22 06:38] LABS: POTASSIUM 3.8 MEQ/L (3.5-5.1)
[2017-01-22 06:42] LABS: BICARBONATE 26.5 MEQ/L (21.0-32.0)
[2017-01-22 07:40] VITALS: O2SAT 96
[2017-01-22 08:00] VITALS: BP 121/78; PULSE 63; RESP 18; TEMP 97.6; O2SAT 96
[2017-01-22] MEDS ORDERED: PANTOPRAZOLE SOD 20 MG DELAYED RELEASE TAB PO SCH (09:00)
[2017-01-22] MEDS ORDERED: CITALOPRAM HYDROBROMIDE 20 MG TAB PO SCH (09:00)
[2017-01-22] MEDS: SODIUM CHLORIDE 0.9% FLUSH 10 ML FLUSH IV FLUSH SCH (09:01)
[2017-01-22] MEDS: levETIRAcetam 500 MG TAB PO SCH (09:01)
[2017-01-22] MEDS ORDERED: LORazepam 2 MG/ML VIAL IV PUSH ONE (10:15)
[2017-01-22] MEDS: TOPIRAMATE 200 MG TAB PO SCH (11:01)
[2017-01-22 12:54] VITALS: BP 143/85; PULSE 77; RESP 18; TEMP 96.9; O2SAT 98
--- NOTE | 2017-01-22 13:48 | EKG ---
Date Performed: 01/21/2017 Time Performed: 11:13:31 PTAGE: 41 years EKG: Sinus rhythm NORMAL ECG Compared to prior tracing no significant change PREVIOUS TRACING : 03/28/2010 16.00 DOCTOR: Ayde Madison Interpretating Date/Time 01/22/2017 13:42:46
--- NOTE | 2017-01-22 15:09 | HHI.DCPOC ---
Discharge Care Plan Diagnosis: (1) Chest pain (2) Seizure Goals to Promote Your Health * To prevent worsening of your condition and complications * To maintain your health at the optimal level Directions to Meet Your Goals Take your medications as prescribed Follow your dietary instruction Follow activity as directed Keep your appointments as scheduled Take your immunizations and boosters as scheduled If your symptoms worsen call your PCP, if no PCP go to Urgent Care Center or Emergency Room Smoking is Dangerous to Your Health. Avoid second hand smoke Call the 24-hour hour crisis hotline for domestic abuse at Leslie Canela MD Jan 22, 2017 15:09
--- NOTE | 2017-01-22 15:18 | RADRPT ---
EXAM DATE/TIME: 01/22/2017 11:34 [place] COMPARISON: No previous studies available for comparison. INDICATIONS : Substernal chest pain radiating to left arm. Angina. DOSE: 34.7 mCi Tc99m Myoview at stress. 10.8 mCi Tc99m Myoview at rest. 0.4 mg Lexiscan STRESS SYMPTOMS: Dyspnea, headache and nausea. EJECTION FRACTION: 70% MEDICAL HISTORY : Hypertension. Diabetes mellitus type 2. Gastroesophageal reflux disease. SURGICAL HISTORY : Tubal ligation. section. Breast reduction. ENCOUNTER: Initial ACUITY: 1 day PAIN SCALE: 6/10 LOCATION: Substernal chest TECHNIQUE: The patient underwent pharmacologic stress with infusion of prescribed dose. Continuous ECG tracing was monitored during stress. Gated SPECT imaging was performed after stress and conventional SPECT i maging was performed at rest. The examination was performed on a SPECT/CT scanner, both attenuation and non-corrected datasets were reviewed. FINDINGS: DISTRIBUTION: The maximum perfused segment at stress is in the anterior wall. PERFUSION STUDY: The pattern of perfusion at stress is a 20% redistribution in the upper septal wall. Focal area of 20 -30% redistribution in the upper lateral wall as well. This is all on the short axis these. I believe findings are concordant on the horizontal long axis views in the region of the upper septum but I ca nnot corroborate the lateral wall deficit on any other view. Fixed diminished perfusion to the apex GATED STUDY: There is intact wall motion and thickening without hypokinetic or dyskinetic segments. CONCLUSION: 1. 20-30% redistribution in the upper septal wall concerning for possible ischemia. 2. Apical thinning. 3. Adequate wall motion throughout with an estimated ejection fraction of 70% RISK CATEGORY: Intermediate (1-3% Annual Mortality Rate) Alexander Ngo MD on January 22, 2017 at 15:10 Board Certified Radiologist. This report was verified electronically.
[2017-01-22] MEDS ORDERED: REGADENOSON INJ 0.4 MG/5 ML SYR IV ONE (15:53)
[2017-01-22 15:56] VITALS: BP 144/83; PULSE 75; RESP 20; TEMP 97.4; O2SAT 98
--- NOTE | 2017-01-22 16:39 | TR ---
Date Performed: 01/22/2017 Time Performed: 12:00:24 DOCTOR: Anni Richardson DRUG LIST: CLINICAL HISTORY: CHEST PAIN REASON FOR TEST: Chest pain REASON FOR ENDING: OBSERVATION: CONCLUSION: Lexiscan stress test was performed under standard four minute protocol. Radionuclid e was injected one minute prior to ending the test. No electrocardiographic abormalities were present to suggest ischemia. Nuclear imaging and interpretation are pending. COMMENTS:
[2017-01-23] MEDS ORDERED: ASPIRIN 325 MG TAB PO SCH (09:00)
--- NOTE | 2017-02-01 15:19 | HHI.DS ---
Discharge Summary Admission Date Jan 21, 2017 at 15:52 Discharge Date: Jan 22, 2017 Admitting Diagnosis chest pain, seizure (1) Chest pain ICD Code: R07.9 - Chest pain Status: Acute Procedures Stress test Brief History - From Admission Patient seen in the ER for atypical CP and seizure disorder. She has a history of hyperlipidemia, diabetes. She initially presented to the emergency department earlier today for evaluation of chest pain. She had an EKG performed in triage, however left before being evaluated by ER provider. While in the parking lot, the patient had a generalized seizure that was witnessed by the patient's son. She came back to the ER. Patient reports compliance with her antiepileptic medications. She reports having substernal chest pain that started today and radiates to her back, left arm, left arm numbness. Pain described as a pressure, moderate, no modifying factors. She denies history of cardiac disease. Imaging Last Impressions Myocardial Perfusion Scan Nuc Med 01/22/17 0000 Signed Impressions: Service Date/Time: Sunday, January 22, 2017 11:34 - CONCLUSION: 1. 20-30%% redistribution in the upper septal wall concerning for possible ischemia. 2. Apical thinning. 3. Adequate wall motion throughout with an estimated ejection fraction of 70%% RISK CATEGORY: Intermediate (1-3%% Annual Mortality Rate ) Alexander Ngo MD Chest X-Ray 01/21/17 1211 Signed Impressions: Service Date/Time: Saturday, January 21, 2017 12:36 - CONCLUSION: No acute disease. Osman Ochoa MD Head CT 01/21/17 0000 Signed Impressions: Service Date/Time: Saturday, January 21, 2017 14:22 - CONCLUSION: No acute intracranial disease. Osman Ochoa MD Aorta CTA 01/21/17 0000 Signed Impressions: Service Date/Time: Saturday, January 21, 2017 14:32 - CONCLUSION: 1. Thoracoabdominal aorta is normal throughout. Incidental note is made of a bovine arch, an anatomic variant. 2. Probable pedunculated fibroid off the left lower uterine segment. Alexander Ngo MD PE at Discharge GENERAL: This is a well-nourished, well-developed patient, in no apparent distress. CARDIOVASCULAR: Regular rate and rhythm without murmurs, gallops, or rubs. RESPIRATORY: Clear to auscultation. Breath sounds equal bilaterally. No wheezes , rales, or rhonchi. GASTROINTESTINAL: Abdomen soft, non-tender, nondistended. Normal active bowel sounds MUSCULOSKELETAL: Extremities without clubbing, cyanosis, or edema. NEURO: Alert & Oriented x4 to person, place, time, situation. Moves all ext x4 Pt update on day of discharge Doing better, no CP Discussed with RN and patient and spouse Hospital Course Patient seen for atypical CP and was evaluated by Stress test. This was negative and she was discharged home Pt Condition on Discharge: Good Discharge Disposition: Discharge Home Discharge Time: <= 30 minutes Discharge Instructions DIET: Follow Instructions for: Heart Healthy Diet Activities you can perform: Regular-No Restrictions Follow up Referrals: PCP Follow-up Continued Medications: Xigyyjblar-Lkaurwtwgrgox-Gyyvreqh (Exxplwavrr-Zrwhdjzuyvyov-Uzooseiz) 50-325-40 Mg Tab 1 TAB PO Q6H PRN for migraine headaches, #28 TAB Citalopram (Citalopram) 20 Mg Tab 20 MG PO DAILY for Control Depression, #30 TAB 0 Refills Levetiracetam (Keppra) 250 Mg Tab 500 MG PO BID for Control Seizures, #120 TAB 0 Refills Metformin (Metformin) Unknown Strength Tab Unknown Dose PO BIDPC for Blood Sugar Management, #60 TAB 0 Refills With meals Metoprolol Tartrate (Metoprolol Tartrate) 25 Mg Tab 25 MG PO DAILY, #30 TAB 0 Refills Omeprazole (Omeprazole) 20 Mg Tab 20 MG PO DAILY, #30 TAB 0 Refills Topiramate (Topamax) 25 Mg Tab 200 MG PO BID for Control Seizures, #60 TAB 0 Refills Leslie Canela MD Feb 01, 2017 15:19
[2017-02-13] MEDS ORDERED: NITR1CAP36 PO (09:05)
--- NOTE | 2017-02-26 16:23 | HHI.HP ---
[facility] Devin Mcfarlane MD Admission Diagnosis chest pain, seizure Diagnoses: Chief Complaint: Chest pain Travel History International Travel<30 Days: No Contact w/Intl Traveler <30 Da: No Traveled to Known Affected Are: No History of Present Illness Patient is a 41 obese female with Uncontrolled HTN who came to the ER complaining of Cp, unfortunately she left from the waiting room and had a sz in the parking lot. She has a hx of Sz and her last was in November. She sees a neurologist. She has recovered from this with a mild postictal phase. She is now back n the er for evaluation of the original complaint which is CP. Left sied rad to back , neck and left arm, and associated with sweating and nausea, It is relieved with nitro and has been intermittent for 1 day without aggravating factors. Ekg reviewed by me is unremarkable and CXR reviewed by me is wnl. She is admitted to the med surg unit for CP. Review of Systems Constitutional: DENIES: Diaphoretic episodes, Fatigue, Fever, Weight gain, Weight loss, Chills, Dizziness, Change in appetite, Night Sweats Endocrine: DENIES: Abnorml menstrual pattern, Heat/cold intolerance, Polydipsia , Polyuria, Polyphagia Eyes: DENIES: Blurred vision, Diplopia, Eye inflammation, Eye pain, Vision loss , Photosensitivity, Double Vision Ears, nose, mouth, throat: DENIES: Tinnitus, Hearing loss, Vertigo, Nasal discharge, Oral lesions, Throat pain, Hoarseness, Ear Pain, Running Nose, Epistaxis, Sinus Pain, Toothache, Odynophagia Respiratory: DENIES: Apneas, Cough, Snoring, Wheezing, Hemoptysis, Sputum production, Shortness of breath Cardiovascular: COMPLAINS OF: Chest pain, DENIES: Palpitations, Syncope, Dyspnea on Exertion, PND, Lower Extremity Edema, Orthopnea, Claudication Gastrointestinal: DENIES: Abdominal pain, Black stools, Bloody stools, Constipation, Diarrhea, Nausea, Vomiting, Difficulty Swallowing, Anorexia Genitourinary: DENIES: Abnormal vaginal bleeding, Dysmenorrhea, Dyspareunia, Sexual dysfunction, Urinary frequency, Urinary incontinence, Urgency, Hematuria , Dysuria, Nocturia, Vaginal discharge Integumentary: DENIES: Abnormal pigmentation, Pruritus, Rash, Nail changes, Breast masses, Breast skin changes, Nipple discharge Hematologic/lymphatic: DENIES: Bruising, Lymphadenopathy Immunologic/allergic: DENIES: Eczema, Urticaria Neurologic: COMPLAINS OF: Seizures, DENIES: Abnormal gait, Headache, Localized weakness, Paresthesias, Speech Problems, Tremor, Poor Balance Psychiatric: DENIES: Anxiety, Confusion, Mood changes, Depression, Hallucinations, Agitation, Suicidal Ideation, Homicidal Ideation, Delusions Except as stated in HPI: all other systems reviewed are Neg Past Family Social History Past Medical History HTN Sz Obesity Anxiety thyroid dz 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 Right shoulder breast reduction Reported Medications Reviewed in EMR Allergies: Coded Allergies: latex (Unverified Allergy, Severe, HIVES, 02/13/17) Active Ordered Medications Reviewed in the EMR Family History GM Cabg, DM Mom MVP F HTN Social History no tobacco Physical Exam Vital Signs Vital Signs Date Time Temp Pulse Resp B/P (MAP) Pulse Ox O2 Delivery O2 Flow Rate FiO2 01/21/17 16:25 82 16 153/75 (101) 99 01/21/17 15:58 98 21 01/21/17 13:52 100 01/21/17 12:08 73 16 100 Room Air 01/21/17 11:57 98.9 73 16 176/76 (109) 100 Physical Exam GENERAL: This is a well-nourished, well-developed patient, in no apparent distress. SKIN: No rashes, ecchymoses or lesions. Cool and dry. HEAD: Atraumatic. Normocephalic. No temporal or scalp tenderness. EYES: Pupils equal round and reactive. Extraocular motions intact. No scleral icterus. No injection or drainage. ENT: Nose without bleeding, purulent drainage or septal hematoma. Throat without erythema, tonsillar hypertrophy or exudate. Uvula midline. Airway patent. NECK: Trachea midline. No JVD or lymphadenopathy. Supple, nontender, no meningeal signs. CARDIOVASCULAR: Regular rate and rhythm without murmurs, gallops, or rubs. RESPIRATORY: Clear to auscultation. Breath sounds equal bilaterally. No wheezes , rales, or rhonchi. GASTROINTESTINAL: Abdomen soft, non-tender, nondistended. No hepato-splenomegaly , or palpable masses. No guarding. MUSCULOSKELETAL: Extremities without clubbing, cyanosis, or edema. No joint tenderness, effusion, or edema noted. No calf tenderness. Negative Homans sign bilaterally. NEUROLOGICAL: Awake and alert. Cranial nerves II through XII intact. Motor and sensory grossly within normal limits. Five out of 5 muscle strength in all muscle groups. Normal speech. Laboratory Laboratory Tests Test 01/21/17 13:12 White Blood Count 5.0 Red Blood Count 5.18 Hemoglobin 13.5 Hematocrit 41.5 Mean Corpuscular Volume 80.2 Mean Corpuscular Hemoglobin 26.1 Mean Corpuscular Hemoglobin Concent 32.5 Red Cell Distribution Width 14.0 Platelet Count 240 Mean Platelet Volume 7.7 Neutrophils (%) (Auto) 44.6 Lymphocytes (%) (Auto) 42.2 Monocytes (%) (Auto) 7.9 Eosinophils (%) (Auto) 4.7 Basophils (%) (Auto) 0.6 Neutrophils # (Auto) 2.3 Lymphocytes # (Auto) 2.1 Monocytes # (Auto) 0.4 Eosinophils # (Auto) 0.2 Basophils # (Auto) 0.0 CBC Comment DIFF FINAL Differential Comment Prothrombin Time 10.7 Prothromb Time International Ratio 1.0 Activated Partial Thromboplast Time 30.8 Blood Urea Nitrogen 13 Creatinine 1.10 Random Glucose 89 Total Protein 8.0 Albumin 3.8 Calcium Level 9.1 Magnesium Level 2.1 Alkaline Phosphatase 108 Aspartate Amino Transf (AST/SGOT) 16 Alanine Aminotransferase (ALT/SGPT) 26 Total Bilirubin 0.3 Sodium Level 141 Potassium Level 3.7 Chloride Level 108 Carbon Dioxide Level 26.7 Anion Gap 6 Estimat Glomerular Filtration Rate 66 Total Creatine Kinase 101 Creatine Kinase MB LESS THAN 0.5 Troponin I LESS THAN 0.02 Human Chorionic Gonadotropin, Quant LESS THAN 1 Result Diagram: 01/21/17 1312 01/21/17 1312 Imaging CXRay : my review is WNL EKG NSR Caprini VTE Risk Assessment Caprini VTE Risk Assessment: No/Low Risk (score <= 1) Caprini Risk Assessment Model Point Value = 1 Point Value = 2 Point Value = 3 Point Value = 5 Age 41-60 Minor surgery BMI > 25 kg/m2 Swollen legs Varicose veins or History of unexplained or recurrent spontaneous Oral contraceptives or hormone replacement Sepsis (< 1 month) Serious lung disease, including pneumonia (< 1 month) Abnormal pulmonary function Acute myocardial infarction Congestive heart failure (< 1 month) History of inflammatory bowel disease Medical patient at bed rest Age 61-74 Arthroscopic surgery Major open surgery (> 45 min) Laparoscopic surgery (> 45 min) Malignancy Confined to bed (> 72 hours) Immobilizing plaster cast Central venous access Age >= 75 History of VTE Family history of VTE Factor V Leiden Prothrombin [id number] Lupus anticoagulant Anticardiolipin antibodies Elevated serum homocysteine Heparin-induced thrombocytopenia Other congenital or acquired thrombophilia Stroke (< 1 month) Elective arthroplasty Hip, pelvis, or leg fracture Acute spinal cord injury (< 1 month) Prophylaxis Regimen Total Risk Factor Score Risk Level Prophylaxis Regimen 0-1 Low Early ambulation 2 Moderate Order ONE of the following: *Sequential Compression Device (SCD) *Heparin 5000 units SQ BID 3-4 Higher Order ONE of the following medications: *Heparin 5000 units SQ TID *Enoxaparin/Lovenox 40 mg SQ daily (WT < 150 kg, CrCl > 30 mL/min) *Enoxaparin/Lovenox 30 mg SQ daily (WT < 150 kg, CrCl > 10-29 mL/min) *Enoxaparin/Lovenox 30 mg SQ BID (WT < 150 kg, CrCl > 30 mL/min) AND/OR *Sequential Compression Device (SCD) 5 or more Highest Order ONE of the following medications: *Heparin 5000 units SQ TID (Preferred with Epidurals) *Enoxaparin/Lovenox 40 mg SQ daily (WT < 150 kg, CrCl > 30 mL/min) *Enoxaparin/Lovenox 30 mg SQ daily (WT < 150 kg, CrCl > 10-29 mL/min) *Enoxaparin/Lovenox 30 mg SQ BID (WT < 150 kg, CrCl > 30 mL/min) AND *Sequential Compression Device (SCD) Assessment and Plan Problem List: (1) Chest pain ICD Code: R07.9 - Chest pain Status: Acute Plan: Atypical R/O cardiac enzymes and NST pending M/O/N/A and BB as needed (2) Seizure ICD Code: R56.9 - Unspecified convulsions Status: Acute Plan: Resume home meds may he had a lowered threshold due to CP/Stress (3) Hypertension ICD Code: I10 - Hypertension Status: Acute Plan: continue home meds and adjust as needed to meet goal Problem Qualifiers (1) Chest pain: Qualified Codes: R07.9 - Chest pain, unspecified Leslie Canela MD Jan 21, 2017 18:59
== END 2017-01-22 16:25 | disposition home or self-care (01) ==
LOC: PHED 11:53 → PHEDA 15:52 → PH3B 20:36
PROVIDERS: ADMIT Hospitalist; ATTEND Hospitalist
DX: R07.2 Precordial pain (principal); I10 Essential (primary) hypertension; E11.9 Type 2 diabetes mellitus without complications; E78.00 Pure hypercholesterolemia, unspecified; K21.9 Gastro-esophageal reflux disease without esophagitis; Z87.442 Personal history of urinary calculi; G40.909 Epilepsy, unspecified, not intractable, without status epilepticus; Y92.481 Parking lot as the place of occurrence of the external cause; F41.9 Anxiety disorder, unspecified
CPT/HCPCS: 70450; 71010; 71275; 74174; 78452; 80048; 80053; 82550; 82552; 82948; 83735; 84484; 84702; 85025; 85610; 85730; 93005; 93017; 99285; A9502; G0378; J2060; J2785; Q9967

== ENCOUNTER 2017-08-30 08:59 | Emergency (ER) | payer MEDICAID ==
[~2017-08-30] VITALS: Ht 162.6 cm; Wt 110.0 kg
[~2017-08-30 08:59] MED LIST changes: -DICL1CAP4 PO; +FLUC150T PO; +NITR1CAP36 PO; -OMEP20TA PO; +OMEP20TA93 PO; -TOPA25TA8 PO; +TOPI25 PO; -[UNRECOGNIZED DRUG - CODE] PO
[2017-08-30 09:05] VITALS: BP 166/77; PULSE 71; RESP 16; TEMP 98.8; O2SAT 100
[2017-08-30] MEDS ORDERED: LORazepam 2 MG/ML VIAL IM ONE (09:15)
[2017-08-30] MEDS ORDERED: KETOROLAC TROMETHAMINE 60 MG/2 ML (IM) VIAL IM ONE (09:15)
--- NOTE | 2017-08-30 09:20 | PD ---
HPI . Seizure Chief Complaint: Seizure Time Seen by Provider: 09:07 Travel History International Travel<30 days: No Contact w/Intl Traveler<30days: No Traveled to known affect area: No History of Present Illness HPI Patient presents by [facility] for the evaluation of seizures 2 this morning. This was associated with some mild urinary incontinence but no injuries. Patient reports a known seizure disorder. She is on Keppra and Topamax for her seizures. She reports that she is compliant with her medications. She reports fairly frequent seizures stating that her last one before today was about 2 weeks ago. She states that she basically feels okay at this point and is unsure as to why her family called 911. She reports that seizures for her are not abnormal. She does complain with a global headache which she rates 8/10. PFSH Past Medical History Hx Anticoagulant Therapy: Yes Anemia: Yes Anxiety: Yes Heart Rhythm Problems: No Cancer: No Cardiac Catheterization: No Cardiovascular Problems: Yes High Cholesterol: Yes Chest Pain: Yes Congestive Heart Failure: No Diabetes: Yes Patient Takes Glucophage: No Diminished Hearing: No Endocrine: Yes Gastrointestinal Disorders: Yes GERD: Yes Genitourinary: Yes Headaches: Yes Heparin Induced Thrombocytopen: No Hypertension: Yes Immune Disorder: No Implanted Vascular Access Dvce: No Kidney Stones: Yes Musculoskeletal: Yes (HERNIATED C-4- BACK INJURY IN 01/08- CHRONIC BACK PAIN.) Neurologic: Yes Psychiatric: No Reproductive: No Respiratory: No Immunizations Current: Yes Migraines: Yes Seizures: Yes Thyroid Disease: Yes ?: Not LMP: 2009 LAST CYCLE Menopausal: No : 3 Para: 2 Miscarriage: 1 : 0 Tubal Ligation: Yes (2002) Past Surgical History Section: Yes (X 2) Coronary Artery Bypass Graft: No Gynecologic Surgery: Yes (ENDOMETRIAL ABLATION, breast reduction) Other Surgery: Yes (breast reduction) Family History Family Myocardial Infarction: Yes Social History Alcohol Use: Yes (occas.) Tobacco Use: No Substance Use: No Allergies-Medications (Allergen,Severity, Reaction): Coded Allergies: latex (Unverified Allergy, Severe, HIVES, 08/30/17) Reported Meds & Prescriptions Reported Meds & Active Scripts Active Fluconazole 150 Mg Tab 150 Mg PO ONCE Nitrofurantoin Macrocrystal 100 Mg Cap 100 Mg PO BID Keppra (Levetiracetam) 250 Mg Tab 500 Mg PO BID Uwseukiyvc-Gpdwztfimnqqi-Mphsevfs 50-325-40 Mg Tab 1 Tab PO Q6H PRN Reported Topamax (Topiramate) 25 Mg Tab 200 Mg PO BID Metoprolol Tartrate 25 Mg Tab 25 Mg PO DAILY Citalopram (Citalopram Hydrobromide) 20 Mg Tab 20 Mg PO DAILY Omeprazole 20 Mg Tab 20 Mg PO DAILY Metformin (Metformin HCl) Unknown Strength Tab Unknown Dose PO BIDPC With meals Review of Systems General / Constitutional: No: Fever, Chills Eyes: No: Blurred Vision HENT: Positive: Headaches Neurologic: Positive: Incontinence, Seizures Physical Exam Narrative GENERAL: Patient is now awake, alert and fully oriented. SKIN: warm/dry. Normal color and turgor. HEAD: Normocephalic. Atraumatic. EYES: Pupils equal and round. No scleral icterus. No injection or drainage. ENT: No nasal bleeding or discharge. Mucous membranes pink and moist. No injury to the tongue. NECK: Trachea midline. Full range of motion without pain.. CARDIOVASCULAR: Regular rate and rhythm. Heart sounds are normal. RESPIRATORY: No accessory muscle use. Clear to auscultation. Breath sounds equal bilaterally. MUSCULOSKELETAL: No obvious deformities. NEUROLOGICAL: Awake and alert. No obvious cranial nerve deficits. Motor grossly within normal limits. Normal speech. PSYCHIATRIC: Appropriate mood and affect; insight and judgment normal. Data Data Last Documented VS Vital Signs Date Time Temp Pulse Resp B/P (MAP) Pulse Ox O2 Delivery O2 Flow Rate FiO2 08/30/17 09:57 70 16 166/77 (106) 100 Room Air 08/30/17 09:05 98.8 Orders Orders Lorazepam Inj (Ativan Inj) (08/30/17 09:15) Ketorolac Inj (Toradol Inj) (08/30/17 09:15) [facility] Medical Decision Making Medical Screen Exam Complete: Yes Emergency Medical Condition: Yes Medical Record Reviewed: Yes (Medical history also includes hyperlipidemia and diabetes.) Differential Diagnosis Differential diagnosis of seizure includes but is not limited to epilepsy, electrolyte abnormality, previous stroke, closed head injury Narrative Course This is a patient with a known seizure disorder who presents status post 2 seizures at home. She is now awake, alert and fully oriented. She is complaining with a headache. She has refused IV per our nursing staff. I will treat her headache with IM Toradol and Ativan. The Ativan should protect her from ensuing seizures today. The patient has had no further seizure activity here. She states that her headache is much improved following the Toradol and Ativan. The patient has asked me to please let her family know that they do not need to call me back every time she has a seizure. Diagnosis Primary Impression: Seizure Additional Impression: Headache Qualified Codes: R51 - Headache Additional Instructions: There is no need to come to the hospital following his seizure if there is a return to a normal level of consciousness within 30 minutes. Disposition: 01 DISCHARGE HOME Condition: Stable Lilly Todd MD Aug 30, 2017 09:20
[2017-08-30 09:57] VITALS: BP 166/77; PULSE 70; RESP 16; O2SAT 100
== END 2017-08-30 11:33 | disposition home or self-care (01) ==
LOC: NEPC 08:59
DX: G40.909 Epilepsy, unspecified, not intractable, without status epilepticus (principal); E11.9 Type 2 diabetes mellitus without complications; I10 Essential (primary) hypertension; K21.9 Gastro-esophageal reflux disease without esophagitis; Z79.84 Long term (current) use of oral hypoglycemic drugs
CPT/HCPCS: 96372; 99283; J1885; J2060